=== PATIENT | female | born 1955 | race Caucasian/White ===

== ENCOUNTER 2023-11-13 19:32 | Outpatient (REF) | payer MEDICARE, MEDICAID, SELFPAY ==
[2023-11-13 18:45] LABS: Hemoglobin A1C 6.5 % (<5.7)
[2023-11-13 19:19] LABS: ALT 33 U/L (14-59); AST 22 U/L (15-37); Alkaline Phosphatase 89 U/L (46-116); Anion Gap 10.5 mmol/L (3-11); BUN 31 mg/dL (7-18); Bilirubin, Total 0.7 mg/dL (0.2-1.0); CO2 26.5 mmol/L (21.0-32.0); CREATININE 2.6 mg/dL (0.55-1.02); Calcium 9.7 mg/dL (8.5-10.1); Chloride 102 mmol/L (98-107); Estimated GFR 19.38 (mL/min/1.73m2); Glucose 200 mg/dL (74-106); Potassium 4.5 mmol/L (3.5-5.1); Sodium 139 mmol/L (136-145); TSH (W/Ref FT4) 2.69 uIU/mL (0.36-3.74); Total Protein 7.6 g/dL (6.4-8.2)
[2023-11-13 19:20] LABS: Iron 128 ug/dL (50-170); Total Iron Binding Capacity 343 ug/dL (250-450); Transferrin Sat 37 % (15-50)
[2023-11-13 19:39] LABS: Vitamin D 25 Total 145.7 ng/mL (30-100)
[2023-11-14 00:19] LABS: Magnesium 1.9 mg/dL (1.8-2.4); Vitamin B12 771 pg/mL (193-986)
[2023-11-14 00:23] LABS: Abs Immature Grans 0.02 10^3/uL (0.0-0.06); Absolute Basophil Count 0.05 10^3/uL (0.0-0.2); Absolute Eosinophil Count 0.17 10^3/uL (0.0-0.7); Absolute Lymphocyte Count 1.24 10^3/uL (1.2-3.4); Absolute Monocyte Count 0.61 10^3/uL (0.1-0.8); Absolute Neutrophil Count 4.77 10^3/uL (1.2-6.7); Basophils % 0.7; Eosinophils % 2.5; HCT 37.9 % (36.0-46.0); Immature Grans % 0.3; Lymphocytes % 18.1; MCH 31.9 pg (27.0-33.0); MCHC 34.3 % (32.0-36.0); MCV 93 fL (80-95); MPV 10.7 fL (8.0-11.0); Monocytes % 8.9; Neutrophils % 69.5; Platelet Count 158 10^3/uL (130-400); RBC 4.07 10^6/uL (3.93-5.22); RDW-SD 41.3 fL; WBC 6.86 10^3/uL (4.4-10.8)
== END 2023-11-13 19:33 | disposition home or self-care (01) ==
LOC: LBN 19:32
PROVIDERS: Visit Provider Nurse Practitioner Gerontology
DX: N18.32 Chronic kidney disease, stage 3b (principal); R53.82 Chronic fatigue, unspecified; E83.42 Hypomagnesemia; R73.09 Other abnormal glucose; I11.9 Hypertensive heart disease without heart failure; D52.9 Folate deficiency anemia, unspecified; D51.9 Vitamin B12 deficiency anemia, unspecified; I63.9 Cerebral infarction, unspecified
CPT/HCPCS: 80053; 82306; 82607; 83036; 83540; 83550; 83735; 84443; 85025

== ENCOUNTER 2023-11-14 19:11 | Outpatient (REF) | payer MEDICARE, MEDICAID, SELFPAY ==
[2023-11-15 18:14] LABS: Parathyroid Hormone,Intact 72 pg/mL (19-88)
== END 2023-11-14 19:12 | disposition home or self-care (01) ==
LOC: LBN 19:11
PROVIDERS: Visit Provider Nurse Practitioner Gerontology
DX: N18.32 Chronic kidney disease, stage 3b (principal); I11.9 Hypertensive heart disease without heart failure
CPT/HCPCS: 84156; 84166; 86335; 83970

== ENCOUNTER 2023-11-15 16:59 | Outpatient (REF) | payer MEDICARE, MEDICAID, SELFPAY ==
[2023-11-17 15:38] LABS: Albumin, Urine % 40.9 %; Albumin, Urine mg/dL 11 mg/dL; Globulins, Urine % 59.1 %; Globulins, Urine mg/dL 16 mg/dL; Immunotyping, Urine (See Note); Total Protein Urine 27 mg/dL (See Note)
== END 2023-11-15 17:00 | disposition home or self-care (01) ==
LOC: LBN 16:59
PROVIDERS: Visit Provider Nurse Practitioner Gerontology
DX: N18.32 Chronic kidney disease, stage 3b (principal); R33.9 Retention of urine, unspecified; I11.9 Hypertensive heart disease without heart failure
CPT/HCPCS: 84156; 84166; 86335

== ENCOUNTER 2023-11-20 20:32 | Outpatient (REF) | payer MEDICARE, MEDICAID, SELFPAY ==
[2023-11-20 20:49] LABS: Vitamin D 25 Total 135.2 ng/mL (30-100)
== END 2023-11-20 20:33 | disposition home or self-care (01) ==
LOC: LBN 20:32
PROVIDERS: Visit Provider Nurse Practitioner Gerontology
DX: E55.9 Vitamin D deficiency, unspecified (principal); N18.32 Chronic kidney disease, stage 3b
CPT/HCPCS: 82306

== ENCOUNTER 2023-12-04 10:04 | Emergency (ER) | payer MEDICARE, MEDICAID, SELFPAY ==
[2023-12-04 10:05] VITALS: BP 135/84; PULSE 67; RESP 18; TEMP 37; O2SAT 99
--- NOTE | 2023-12-04 10:08 | ED.GENADUL_ITS ---
Discharge Plan Disposition Patient Disposition: Home Condition: Stable Discharge Details Clinical Impression: Dislodged gastrostomy tube, Complaint associated with gastric tube Primary Care Provider: Unknown,Unknown ED Provider: Roman Epstein Home Meds and New Rx's Prescriptions: No Action acetaminophen [Acetaminophen Extra Strength] 500 mg tablet 500 mg PO Q6H PRN furosemide 20 mg tablet 20 mg PO DAILY amantadine HCl 100 mg capsule 100 mg PO BID insulin glargine [Lantus Solostar U-100 Insulin] 100 unit/mL (3 mL) insulin pen 10 unit subcut BID aspirin 81 mg tablet,chewable 81 mg PO DAILY sennosides-docusate sodium [Lax Stool Softener With Senna] 8.6-50 mg tablet 1 tab-cap PO BID amantadine HCl 100 mg capsule 100 mg PO Q OTHER DAY Tab-A-Tyrone Multivitamin w-iron 15 mg iron- 400 mcg tablet PO insulin aspart U-100 100 unit/mL cartridge 1 sliding scale dose subcut USEASDIRECTD candesartan 16 mg tablet 16 mg PO DAILY atorvastatin 20 mg tablet 20 mg PO DAILY spironolactone 25 mg tablet 25 mg PO DAILY terazosin 1 mg capsule 1 mg PO DAILY amlodipine 10 mg tablet 10 mg PO DAILY famotidine 20 mg tablet 20 mg PO DAILY fluoxetine 20 mg capsule 20 mg PO DAILY Discharge Instructions Additional Instructions: Gastric tube was not replaced today. Please perform basic wound care to protect G-tube wound. Please follow-up with your specialist and primary care physician. Please note that medication reconciliation could be performed today. Please be sure to discuss your medications with your prescribing physician and take as prescribed. Return to the ER immediately for any worsening or new concerning symptoms. HPI General Mode of arrival: ambulatory . Date/Time Provider Initiated Documentation: 12/04/23 10:08 . Limitations to Documentation: no limitations . Information obtained by: patient . HPI Narrative: 68yo female with multiple medical problems including CVA, G-tube placement, here with accidental removal of G-tube that occurred around 9 AM this morning. G- tube was scheduled to be removed on 12/12 per EMS. History limited secondary to altered mental status. Related Data Home Medications Medication Instructions Recorded Confirmed acetaminophen 500 mg tablet 500 mg PO Q6H PRN 12/01/23 (Acetaminophen Extra Strength) amantadine HCl 100 mg capsule 100 mg PO BID 12/01/23 amantadine HCl 100 mg capsule 100 mg PO Q OTHER DAY 12/01/23 amlodipine 10 mg tablet 10 mg PO DAILY 12/01/23 aspirin 81 mg chewable tablet 81 mg PO DAILY 12/01/23 atorvastatin 20 mg tablet 20 mg PO DAILY 12/01/23 candesartan 16 mg tablet 16 mg PO DAILY 12/01/23 famotidine 20 mg tablet 20 mg PO DAILY 12/01/23 fluoxetine 20 mg capsule 20 mg PO DAILY 12/01/23 furosemide 20 mg tablet 20 mg PO DAILY 12/01/23 insulin aspart U-100 100 unit/mL 1 sliding scale dose subcut 12/01/23 subcutaneous cartridge USEASDIRECTD insulin glargine 100 unit/mL (3 10 unit subcut BID 12/01/23 mL) subcutaneous pen (Lantus Solostar U-100 Insulin) multivitamin-iron sulfate 15 tab PO 12/01/23 mg-folic acid 400 mcg tablet (Tab-A-Tyrone Multivitamin w-iron) sennosides 8.6 mg-docusate sodium 1 tab-cap PO BID 12/01/23 50 mg tablet (Laxative Stool Softener With Senna) spironolactone 25 mg tablet 25 mg PO DAILY 12/01/23 terazosin 1 mg capsule 1 mg PO DAILY 12/01/23 Allergies Allergy/AdvReac Type Severity Reaction Status Date / Time Antihistamines - Alkylamine Allergy unknown Unverified 12/01/23 12:06 baclofen Allergy unknown Unverified 12/01/23 12:06 diphenhydramine Allergy unknown Unverified 12/01/23 12:06 hydrocodone Allergy unknown Unverified 12/01/23 12:06 iodine Allergy unknown Unverified 12/01/23 12:06 ketorolac Allergy unknown Unverified 12/01/23 12:06 meperidine Allergy unknown Unverified 12/01/23 12:06 morphine Allergy unknown Unverified 12/01/23 12:06 NSAIDS (Non-Steroidal Allergy unknown Unverified 12/01/23 12:06 Anti-Inflamma prednisone Allergy unknown Unverified 12/01/23 12:06 shellfish Allergy unknown Uncoded 12/01/23 12:06 General Stated Complaint: GenMedical TEX: 4 Review of Systems Gastrointestinal Gastrointestinal: Denies abdominal pain Exam Const General: cooperative and no acute distress Resp Auscultation: clear to auscultation bilaterally, no rales, no rhonchi and no wheezes Cardio Rate: regular rate and not tachycardic Rhythm: regular rhythm GI Palpation: soft, not firm, no guarding, no masses, not rigid and nontender Other: G-tube ostomy intact Course Vital Signs Vital signs: Vital Signs Temperature 37 C 12/04/23 10:05 Pulse 67 12/04/23 10:05 Respiratory Rate 18 12/04/23 10:05 Blood Pressure 135/84 12/04/23 10:05 Pulse Oximetry 99 12/04/23 10:05 Temperature 37 C 12/04/23 10:05 Temperature Source Temporal Artery Scan 12/04/23 10:05 Pulse 67 12/04/23 10:05 Respiratory Rate 18 12/04/23 10:05 Blood Pressure 135/84 12/04/23 10:05 Blood Pressure Position Sitting 12/04/23 10:05 Pulse Oximetry 99 12/04/23 10:05 Oxygen Delivery Method Room Air 12/04/23 10:05 Oxygen Flow Rate 0 12/04/23 10:05 Medical Decision Making 1010 --68-year-old female multiple problems including history of CVA, G-tube placement, here after accidental removal of G-tube. -- Replaced gtube with hua 16F. Consulted surgery. 1129 --I spoke with Dr. Monte, on-call general surgeon, he evaluated the patient and spoke to the patient's daughter. Plan will be to remove G-tube at this time given planned removal. He has removed the Hua and perform wound care. He recommends discharge with routine outpatient follow-up. Quality:SDOH Health Related Social Needs: No Data to Display PFSH All Active Problems (Updated 12/04/23 @ 11:31 by Roman Epstein MD) Complaint associated with gastric tube (Acute) Dislodged gastrostomy tube (Acute) Medical History (Updated 12/04/23 @ 11:31 by Roman Epstein MD) Transaminitis DJD (degenerative joint disease) Elevated troponin Hyperkalemia Lactic acidosis Encephalopathy MIR (nonalcoholic steatohepatitis) Urinary retention Dysphagia Back pain GERD (gastroesophageal reflux disease) Depression Hyperlipidemia Hypotension Diabetes Chronic kidney disease CVA (cerebral vascular accident) Surgical History (Updated 12/01/23 @ 15:05 by Faby Worrell RN) History of hysterectomy S/P percutaneous endoscopic gastrostomy (PEG) tube placement Social History Smoking risk assessment performed?: No
--- NOTE | 2023-12-04 12:53 | W.SURGCON ---
Date of service: 12/04/23 Time of Service: 12:53 Assessment and Plan Assessment and plan (1) Dislodged gastrostomy tube: Status: Acute Assessment and plan: 68 YO F presented with dislodged G-tube CVA Aug 2023 gastrosotmy tube removed, and temporarily replaced with 16 Fr hua catheter Discussed with Marry- Daughter and POA who wished to have have the G-tube discontinued permanently as this was planned for removal within 7 days. Plan: Removal of temporary hua catheter from g-tube site Silver nitrate applied to gastrostomy site mucosa Covered with 4x4 gauze sponge, paper tape Wound care instructions: cover with 4x4 gauze daily, change as needed for soiled dressing Follow-up with General Surgery Dr. Mcfarland as previously scheduled on 12/13/2023 Wound check Application of silver nitrate cautery if indicated History of Present Illness History of Present Illness Chief Complaint: dislodged Gastrostomy tube Narrative: 68 yo F who has a history of CVA, s/p gastrostomy tube secondary to dysphagia. Scheduled for removal of G-tube next week. Presents from SNF after discovery of dislodged G-tube. The patient is a poor historian, status post CVA, she does endorse problems with her memory. She asked me to discuss the recommendation and plans with her daughter. She reports awakening this morning, with incidentally dislodged gastrostomy tube, no pain, no bleeding, no nausea, no vomiting, no GI distress, no discomfort. Timing: Acute, no alleviating or aggravating factors. She was evaluated in the emergency department and underwent appropriate evaluation, and temporary insertion of a 16 [place] Hua catheter with balloon insertion to prevent accidental dislodgment. The patient tolerated this maneuver without difficulty, no complaints. At the time of my evaluation she is sitting upright in the bed, no acute distress, and she endorses her desire to have the gastrostomy tube removed. She is a poor historian, with moderately good recall of details. She corroborates the similar details as her daughter Marry, with regard to nonuse of the gastrostomy tube. She is tolerating adequate oral intake, adequate nutrition, adequate fluid. The only current use for the gastrostomy tube is flushing of the gastrostomy tube to maintain its patency. Consults Consult date: 12/04/23 Review of Systems Narrative: Review of systems is negative except for acute dislodgment of the gastrostomy tube. She does endorse memory issues, no dysphagia, no choking, no aspiration, no recent pneumonia, no heartburn, no reflux. No changes in bowel habits. 12 point view of systems otherwise negative. PFSH All Active Problems (Updated 12/04/23 @ 11:31 by Roman Epstein MD) Complaint associated with gastric tube (Acute) Dislodged gastrostomy tube (Acute) Medical History (Updated 12/04/23 @ 11:31 by Roman Epstein MD) Transaminitis DJD (degenerative joint disease) Elevated troponin Hyperkalemia Lactic acidosis Encephalopathy MIR (nonalcoholic steatohepatitis) Urinary retention Dysphagia Back pain GERD (gastroesophageal reflux disease) Depression Hyperlipidemia Hypotension Diabetes Chronic kidney disease CVA (cerebral vascular accident) Surgical History (Updated 12/01/23 @ 15:05 by Faby Worrell RN) History of hysterectomy S/P percutaneous endoscopic gastrostomy (PEG) tube placement Social History Smoking risk assessment performed?: No Exam Narrative Exam Narrative: gen: No acute distress, sitting upright in the bed Neuro: Status post CVA, no gross neurologic deficits, follows commands Psych: She is a poor historian with some good recall of details, corroborated by her daughter HEENT: Atraumatic, normocephalic Neck: Trachea midline Heart: RRR, no m/r/g Lungs: ctab Chest: Bilateral excursion with respiration, does not localize chest pain Abdomen: Obese abdomen, soft, nontender, there is a temporary Hua catheter indwelling within the gastrostomy tube site, the gastrostomy tube site was noted to have ectopic gastric mucosa around the gastrostomy tract. Silver nitrate was applied to the gastric mucosa. MSK: MAEx4, no traumatic injuries Integument: No lacerations, no abrasions, normal appearing skin Results Last Vital Signs Temp 98.6 F 12/04/23 10:05 Pulse 67 12/04/23 10:05 Resp 18 12/04/23 10:05 BP 135/84 12/04/23 10:05 Pulse Ox 99 12/04/23 10:05
== END 2023-12-04 12:14 | disposition home or self-care (01) ==
PROVIDERS: Emergency Provider Student in an Organized Health Care Education/Training Program
DX: K94.23 Gastrostomy malfunction (principal); I12.9 Hypertensive chronic kidney disease with stage 1 through stage 4 chronic kidney disease, or unspecified chronic kidney disease; E11.22 Type 2 diabetes mellitus with diabetic chronic kidney disease; N18.9 Chronic kidney disease, unspecified; E78.5 Hyperlipidemia, unspecified; Z86.73 Personal history of transient ischemic attack (TIA), and cerebral infarction without residual deficits
CPT/HCPCS: 00123; 99283

== ENCOUNTER → 2023-12-13 08:03 | Outpatient (BNVA) | payer MEDICARE, MEDICAID, SELFPAY | PROVIDERS: PCP Legal Medicine; Referring Provider Legal Medicine; Visit Provider Surgery | DX: T85.528D Displacement of other gastrointestinal prosthetic devices, implants and grafts, subsequent encounter (principal) | CPT/HCPCS: 99213 ==

== ENCOUNTER 2023-12-25 17:56 | Outpatient (REF) | payer MEDICARE, MEDICAID, SELFPAY ==
[2023-12-25 20:24] LABS: ALT 35 U/L (14-59); AST 20 U/L (15-37); Alkaline Phosphatase 81 U/L (46-116); Anion Gap 10.6 mmol/L (3-11); BUN 35 mg/dL (7-18); Bilirubin, Total 0.5 mg/dL (0.2-1.0); CO2 25.4 mmol/L (21.0-32.0); CREATININE 2.7 mg/dL (0.55-1.02); Calcium 9.5 mg/dL (8.5-10.1); Chloride 105 mmol/L (98-107); Estimated GFR 18.52 (mL/min/1.73m2); Glucose 246 mg/dL (74-106); Potassium 4.5 mmol/L (3.5-5.1); Sodium 141 mmol/L (136-145); Total Protein 7.3 g/dL (6.4-8.2)
== END 2023-12-25 17:57 | disposition home or self-care (01) ==
LOC: LBN 17:56
PROVIDERS: PCP Legal Medicine; Visit Provider Nurse Practitioner Gerontology
DX: G89.4 Chronic pain syndrome (principal); E78.5 Hyperlipidemia, unspecified; E83.42 Hypomagnesemia; I11.9 Hypertensive heart disease without heart failure
CPT/HCPCS: 80053

== ENCOUNTER 2024-01-04 08:22 | Emergency (ER) | payer MEDICARE, MEDICAID, SELFPAY ==
--- NOTE | 2024-01-04 | DI.RAD_ITS ---
Exam(s) XR SHOULDER RT COMPLETE 2+V EXAM: XR SHOULDER RT COMPLETE 2+V CLINICAL HISTORY: PAIN. TECHNIQUE: 2D digital imaging was performed of the right shoulder. Four images were obtained. AP, Grashey, Y-view and axillary views were obtained. COMPARISON: No exams were available for comparison FINDINGS: BONES: No acute fracture is present. No bony destructive lesion is seen. JOINTS: No dislocation present. There are degenerative changes seen at the acromioclavicular joint. There is a small osteophyte at the inferior aspect of the glenohumeral joint. SOFT TISSUE: Normal. IMPRESSION: Mild degenerative changes of the shoulder particularly at the AC joint. DATA REPOSITORY: RADIATION DOSE DELIVERED:
[2024-01-04] MEDS: diazePAM 5 MG TAB (09:35)
--- NOTE | 2024-01-04 09:56 | ED.GENADUL_ITS ---
Discharge Plan Disposition Patient Disposition: Home Condition: Stable Discharge Details Clinical Impression: Pain in right shoulder Primary Care Provider: Reena Mayberry ED Provider: Rubio Jean Home Meds and New Rx's Prescriptions: New diazepam [Valium] 5 mg tablet 5 mg PO BID PRN (Reason: muscle spasm) Qty: 10 0RF Continued lidocaine [Aspercreme (lidocaine)] 4 % adhesive patch,medicated 1 patch topical DAILY PRN acetaminophen [Acetaminophen Extra Strength] 500 mg tablet 500 mg PO Q6H PRN furosemide 20 mg tablet 20 mg PO DAILY amantadine HCl 100 mg capsule 100 mg PO BID insulin glargine [Lantus Solostar U-100 Insulin] 100 unit/mL (3 mL) insulin pen 10 unit subcut BID aspirin 81 mg tablet,chewable 81 mg PO DAILY sennosides-docusate sodium [Lax Stool Softener With Senna] 8.6-50 mg tablet 1 tab-cap PO BID amantadine HCl 100 mg capsule 100 mg PO Q OTHER DAY Tab-A-Tyrone Multivitamin w-iron 15 mg iron- 400 mcg tablet PO insulin aspart U-100 100 unit/mL cartridge 1 sliding scale dose subcut USEASDIRECTD candesartan 16 mg tablet 16 mg PO DAILY atorvastatin 20 mg tablet 20 mg PO DAILY spironolactone 25 mg tablet 25 mg PO DAILY terazosin 1 mg capsule 1 mg PO DAILY amlodipine 10 mg tablet 10 mg PO DAILY famotidine 20 mg tablet 20 mg PO DAILY fluoxetine 20 mg capsule 20 mg PO DAILY Discharge Instructions Additional Instructions: Your x-ray showed you have some arthritis in your shoulder Follow-up with your primary care provider within 1 to 2 weeks Return to the emergency department if you feel more ill or have new symptoms such as high fevers or difficulty breathing HPI General Mode of arrival: ambulatory . Date/Time Provider Initiated Documentation: 01/04/24 09:56 . Limitations to Documentation: no limitations . Information obtained by: patient . History of Present Illness 68 year old F presents to the emergency department with the chief complaint of Right shoulder pain, described as moderate, Patient reports no radiation. and it has been constant. No relieving factors improve symptom(s), No exacerbating factors reported . Patient notes no other symptoms.; denies fever/chills. Patient did receive the following treatments prior to arrival, none Related Data Home Medications Medication Instructions Recorded Confirmed acetaminophen 500 mg tablet 500 mg PO Q6H PRN 12/01/23 12/13/23 (Acetaminophen Extra Strength) amantadine HCl 100 mg capsule 100 mg PO BID 12/01/23 12/13/23 amantadine HCl 100 mg capsule 100 mg PO Q OTHER DAY 12/01/23 12/13/23 amlodipine 10 mg tablet 10 mg PO DAILY 12/01/23 12/13/23 aspirin 81 mg chewable tablet 81 mg PO DAILY 12/01/23 12/13/23 atorvastatin 20 mg tablet 20 mg PO DAILY 12/01/23 12/13/23 candesartan 16 mg tablet 16 mg PO DAILY 12/01/23 12/13/23 famotidine 20 mg tablet 20 mg PO DAILY 12/01/23 12/13/23 fluoxetine 20 mg capsule 20 mg PO DAILY 12/01/23 12/13/23 furosemide 20 mg tablet 20 mg PO DAILY 12/01/23 12/13/23 insulin aspart U-100 100 unit/mL 1 sliding scale dose subcut 12/01/23 12/13/23 subcutaneous cartridge USEASDIRECTD insulin glargine 100 unit/mL (3 10 unit subcut BID 12/01/23 12/13/23 mL) subcutaneous pen (Lantus Solostar U-100 Insulin) multivitamin-iron sulfate 15 tab PO 12/01/23 12/13/23 mg-folic acid 400 mcg tablet (Tab-A-Tyrone Multivitamin w-iron) sennosides 8.6 mg-docusate sodium 1 tab-cap PO BID 12/01/23 12/13/23 50 mg tablet (Laxative Stool Softener With Senna) spironolactone 25 mg tablet 25 mg PO DAILY 12/01/23 12/13/23 terazosin 1 mg capsule 1 mg PO DAILY 12/01/23 12/13/23 lidocaine 4 % topical patch 1 patch topical DAILY PRN 12/13/23 12/13/23 (Aspercreme (lidocaine)) diazepam 5 mg tablet (Valium) 5 mg PO BID PRN muscle spasm #10 01/04/24 tabs Previous Rx's Medication Instructions Recorded diazepam 5 mg tablet (Valium) 5 mg PO BID PRN muscle spasm #10 01/04/24 tabs Allergies Allergy/AdvReac Type Severity Reaction Status Date / Time Antihistamines - Alkylamine Allergy unknown Verified 12/13/23 08:09 baclofen Allergy unknown Verified 12/13/23 08:09 diphenhydramine Allergy unknown Verified 12/13/23 08:09 hydrocodone Allergy unknown Verified 12/13/23 08:09 iodine Allergy unknown Verified 12/13/23 08:09 ketorolac Allergy unknown Verified 12/13/23 08:09 meperidine Allergy unknown Verified 12/13/23 08:09 morphine Allergy unknown Verified 12/13/23 08:09 NSAIDS (Non-Steroidal Allergy unknown Verified 12/13/23 08:09 Anti-Inflamma prednisone Allergy unknown Verified 12/13/23 08:09 shellfish Allergy unknown Uncoded 12/13/23 08:09 General TEX: 4 Review of Systems All systems reviewed & are unremarkable except as noted in HPI and below Constitutional Constitutional: Denies chills, Denies fever(s) and Denies weakness Cardiovascular Cardiovascular: Denies dyspnea Respiratory Respiratory: Denies cough and Denies dyspnea Gastrointestinal Gastrointestinal: Denies abdominal pain, Denies nausea and Denies vomiting Integumentary/Breasts Skin/Breast: Denies rash Neurologic Neurologic: Denies weakness Psychiatric Psychiatric: Denies depression Exam Const General: no acute distress Orientation: alert HENSC Head: normal to inspection Ears: external ears normal General nose exam: external nose normal Mouth: moist mucous membranes Eyes General: appearance normal, both eyes and all related structures Neck Neck: normal visual inspection Chest Chest: tenderness Resp Effort & Inspection: normal respiratory effort and able to speak in complete sentences Cardio Rate: regular rate GI Palpation: soft and nontender Skin General skin exam: no rashes or lesions noted Neuro General: patient alert Extrem General: normal to inspection and capillary refill normal Psych Mental Status: mental status grossly normal Medical Decision Making 68-year-old female with a history of a CVA who resides at the [facility], comes in with 1 day of right shoulder pain. She denies any falls or trauma, she localizes it to the right anterior shoulder, has no swelling of the arm, intact pulses and sensation, has limited range of motion of the shoulder due to pain. She has no fevers, no erythema or warmth of the joint. There is reproducible tenderness on the right lateral chest in the mid axillary line over the 4 through 6 ribs. Clear lung sounds, soft nontender abdomen. Suspect musculoskeletal shoulder pain, will obtain x-rays of the shoulder and chest, has no findings on exam or history to suggest a septic joint or DVT of the upper extremity. Pulses are intact without arterial occlusion. Patient feels better after Valium, has full range of motion of the shoulder now, no other changes on exam. She is stable for discharge, advised to follow-up with her PCP and return precautions given Differential Diagnosis Differential Diagnosis: Muscle spasm, strain Imaging Data Radiologic Study: Attestation: I personally reviewed and interpreted this imaging study as follows: Imaging: X-Ray Radiologist's impression: No acute findings on chest x-ray Radiologic Study #2: Attestation: I personally reviewed and interpreted this imaging study as follows: Imaging: X-Ray Radiologist's impression: No acute findings on shoulder x-ray, has degenerative changes Quality:SDOH Health Related Social Needs: No Data to Display PFSH All Active Problems (Updated 01/04/24 @ 11:03 by Rubio Jean MD) Pain in right shoulder (Acute) Medical History (Updated 01/04/24 @ 11:03 by Rubio Jean MD) Transaminitis DJD (degenerative joint disease) Elevated troponin Hyperkalemia Lactic acidosis Encephalopathy MIR (nonalcoholic steatohepatitis) Urinary retention Dysphagia Back pain GERD (gastroesophageal reflux disease) Depression Hyperlipidemia Hypotension Diabetes Chronic kidney disease CVA (cerebral vascular accident) Surgical History (Updated 12/01/23 @ 15:05 by Faby Worrell RN) History of hysterectomy S/P percutaneous endoscopic gastrostomy (PEG) tube placement Social History Smoking/Tobacco Use Status: Never Smoking risk assessment performed?: Yes Alcohol Intake: never Drug use: Never Substance use type: does not use Do you feel safe at home: Yes Do you feel safe in your relationship?: Yes
[2024-01-04 10:16] VITALS: BP 115/56; PULSE 52; RESP 18; TEMP 36.6; O2SAT 97
--- NOTE | 2024-01-04 10:18 | DI.RAD_ITS ---
Exam(s) XR CHEST 2V PA LATERAL EXAM: XR CHEST 2V PA LATERAL CLINICAL HISTORY: RT CHEST TENDERNESS TECHNIQUE: 2D digital imaging was performed of the chest. Two images were obtained. PA and lateral views were obtained. COMPARISON: No exams were available for comparison FINDINGS: The patient is rotated. MEDIASTINUM: Normal. HEART: Normal. PULMONARY VASCULATURE: Normal. LUNGS: Clear. PLEURAL SPACE: No pleural effusion or pneumothorax. BONE:Within normal limits for the patient's age. OTHER FINDINGS:Normal. IMPRESSION: No acute pulmonary findings. DATA REPOSITORY: RADIATION DOSE DELIVERED:
[2024-01-04 10:21] VITALS: BP 115/56; PULSE 52; RESP 18; TEMP 36.6; O2SAT 97
[2024-01-04 11:52] VITALS: BP 120/59; PULSE 52; RESP 18; O2SAT 96
[2024-01-04 11:57] VITALS: BP 120/59; PULSE 52; RESP 18; O2SAT 96
== END 2024-01-04 11:55 | disposition home or self-care (01) ==
PROVIDERS: Emergency Provider Emergency Medicine; PCP Legal Medicine
DX: M25.511 Pain in right shoulder (principal)
CPT/HCPCS: 99283; 71046; 73030

== ENCOUNTER 2024-01-08 17:57 | Outpatient (REF) | payer MEDICARE, MEDICAID, SELFPAY ==
[2024-01-08 17:30] LABS: Magnesium 1.9 mg/dL (1.8-2.4)
[2024-01-08 18:30] LABS: Vitamin D 25 Total 143.8 ng/mL (30-100)
== END 2024-01-08 17:58 | disposition home or self-care (01) ==
LOC: LBN 17:57
PROVIDERS: PCP Legal Medicine; Visit Provider Nurse Practitioner Gerontology
DX: N18.4 Chronic kidney disease, stage 4 (severe) (principal); E11.9 Type 2 diabetes mellitus without complications; E55.9 Vitamin D deficiency, unspecified
CPT/HCPCS: 82306; 83735

== ENCOUNTER 2024-04-15 19:56 | Outpatient (REF) | payer MEDICARE, MEDICAID, SELFPAY ==
[2024-04-15 18:25] LABS: Abs Immature Grans 0.01 10^3/uL (0.0-0.06); Absolute Basophil Count 0.05 10^3/uL (0.0-0.2); Absolute Eosinophil Count 0.11 10^3/uL (0.0-0.7); Absolute Monocyte Count 0.58 10^3/uL (0.1-0.8); Absolute Neutrophil Count 4.25 10^3/uL (1.2-6.7); Basophils % 0.8 %; Eosinophils % 1.7 %; HGB 11.7 g/dL (11.2-15.7); Immature Grans % 0.2 %; Lymphocytes % 20.6 %; MCH 33.2 pg (27.0-33.0); MCHC 35.5 % (32.0-36.0); MCV 94 fL (80-95); MPV 10.1 fL (8.0-11.0); Monocytes % 9.2 %; Neutrophils % 67.5 %; Platelet Count 147 10^3/uL (130-400); RBC 3.52 10^6/uL (3.93-5.22); RDW-SD 41.6 fL
[2024-04-15 19:03] LABS: Hemoglobin A1C 6.2 % (<5.7)
[2024-04-15 19:15] LABS: ALT 35 U/L (14-59); AST 14 U/L (15-37); Albumin 3.9 g/dL (3.4-5.0); Alkaline Phosphatase 82 U/L (46-116); Anion Gap 10.9 mmol/L (3-11); BUN 41 mg/dL (7-18); Bilirubin, Total 0.42 mg/dL (0.2-1.0); CO2 24.1 mmol/L (21.0-32.0); CREATININE 3.2 mg/dL (0.55-1.02); Calcium 9.3 mg/dL (8.5-10.1); Chloride 104 mmol/L (98-107); Glucose 192 mg/dL (74-106); Potassium 4.9 mmol/L (3.5-5.1); Sodium 139 mmol/L (136-145); Total Protein 6.8 g/dL (6.4-8.2)
[2024-04-15 19:32] LABS: Vitamin D 25 Total 126.1 ng/mL (30-100)
== END 2024-04-15 19:57 | disposition home or self-care (01) ==
LOC: LBN 19:56
PROVIDERS: PCP Legal Medicine; Referring Provider Nurse Practitioner Gerontology; Visit Provider Nurse Practitioner Gerontology
DX: E87.1 Hypo-osmolality and hyponatremia (principal); E83.42 Hypomagnesemia; E11.00 Type 2 diabetes mellitus with hyperosmolarity without nonketotic hyperglycemic-hyperosmolar coma (NKHHC); N18.4 Chronic kidney disease, stage 4 (severe)
CPT/HCPCS: 80053; 82306; 83036; 85025

== ENCOUNTER 2024-05-13 19:20 | Outpatient (REF) | payer MEDICARE, MEDICAID, SELFPAY ==
[2024-05-13 19:43] LABS: Abs Immature Grans 0.01 10^3/uL (0.0-0.06); Absolute Basophil Count 0.04 10^3/uL (0.0-0.2); Absolute Eosinophil Count 0.09 10^3/uL (0.0-0.7); Absolute Lymphocyte Count 1.23 10^3/uL (1.2-3.4); Absolute Monocyte Count 0.48 10^3/uL (0.1-0.8); Absolute Neutrophil Count 3.44 10^3/uL (1.2-6.7); Basophils % 0.8 %; Eosinophils % 1.7 %; HCT 33.9 % (36.0-46.0); HGB 11.9 g/dL (11.2-15.7); Immature Grans % 0.2 %; Lymphocytes % 23.3 %; MCH 32.9 pg (27.0-33.0); MCHC 35.1 % (32.0-36.0); MCV 94 fL (80-95); MPV 10.5 fL (8.0-11.0); Monocytes % 9.1 %; Neutrophils % 64.9 %; Platelet Count 150 10^3/uL (130-400); RBC 3.62 10^6/uL (3.93-5.22); RDW 11.9 % (11.7-14.6); WBC 5.29 10^3/uL (4.4-10.8)
[2024-05-13 20:15] LABS: ALT 34 U/L (14-59); AST 22 U/L (15-37); Albumin 3.8 g/dL (3.4-5.0); Alkaline Phosphatase 89 U/L (46-116); Anion Gap 8.8 mmol/L (3-11); BUN 51 mg/dL (7-18); Bilirubin, Total 0.52 mg/dL (0.2-1.0); CO2 26.2 mmol/L (21.0-32.0); CREATININE 2.9 mg/dL (0.55-1.02); Calcium 10.1 mg/dL (8.5-10.1); Chloride 101 mmol/L (98-107); Glucose 224 mg/dL (74-106); Potassium 4.3 mmol/L (3.5-5.1); Sodium 136 mmol/L (136-145); Total Protein 6.9 g/dL (6.4-8.2)
== END 2024-05-13 19:21 | disposition home or self-care (01) ==
LOC: LBN 19:20
PROVIDERS: PCP Legal Medicine; Visit Provider Nurse Practitioner Gerontology
DX: N18.4 Chronic kidney disease, stage 4 (severe) (principal)
CPT/HCPCS: 80053; 85025

== ENCOUNTER 2024-08-05 16:12 | Emergency (ER) | payer MEDICARE, MEDICAID, SELFPAY ==
[2024-08-05] VITALS (18 sets, daily range): BP systolic 121–161; BP diastolic 47–65; PULSE 58–72; RESP 12–25; TEMP 36.6–36.8; O2SAT 93–100
--- NOTE | 2024-08-05 16:15 | DI.RAD_ITS ---
Exam(s) XR ELBOW RT COMPLETE EXAM: XR ELBOW RT COMPLETE CLINICAL HISTORY: right elbow pain. TECHNIQUE: 2D digital imaging was performed. Three views. COMPARISON: No exams were available for comparison FINDINGS: Exam is limited by suboptimal positioning on the lateral view. BONES: No acute fracture is visible. No bony destructive lesion is seen. JOINTS: The elbow is normally aligned. Question of elevation of the anterior fat pad. SOFT TISSUE: Normal. IMPRESSION: Suboptimal positioning. No fracture is identified. DATA REPOSITORY: RADIATION DOSE DELIVERED:
--- NOTE | 2024-08-05 16:15 | DI.RAD_ITS ---
Exam(s) XR KNEE RT 3V AP,LAT,KONSTANTIN EXAM: XR KNEE RT 3V AP,LAT,KONSTANTIN CLINICAL HISTORY: pain post fall. TECHNIQUE: 2D digital imaging was performed. Three views. COMPARISON: No exams were available for comparison FINDINGS: BONES: No acute fracture is present. No bony destructive lesion is seen. JOINTS: The knee is normally aligned. No joint effusion is seen. Minimal degenerative changes. SOFT TISSUE: Vascular calcifications. IMPRESSION: No acute abnormality. DATA REPOSITORY: RADIATION DOSE DELIVERED:
--- NOTE | 2024-08-05 16:15 | DI.CT_ITS ---
Exam(s) CT HEAD CERV SPINE FACIAL WO EXAM: CT HEAD CERV SPINE FACIAL WO CLINICAL HISTORY: fall, [place]. TECHNIQUE: Imaging Protocol: Axial computed tomography images with coronal and sagittal reformatted images were created and reviewed COMPARISON: No exams were available for comparison FINDINGS: CT Head: Ventricles and Extra axial spaces: Normal in size and morphology for the patient's age. Hemorrhage: None. Cerebral parenchyma: No evidence of acute hemorrhage or acute infarct. Old bilateral frontal and par ietal lacunar infarcts. Midline shift: None. Brainstem/Cerebellum: Normal. Calvarium: Normal. Visualized Paranasal sinuses/Mastoids: Opacification of the right sphenoid sinus. Soft Tissues: Unremarkable. CT Face: Facial Bones: No fracture is noted in facial bones. Sinuses and Mastoids: Opacification of the right sphenoid sinus. Globes, extraocular muscles, optic nerves and retrobulbar fat: Normal. Upper aerodigestive tract: Normal. Mandible and bilateral temporomandibular joints: Normal. Soft tissues: Normal. CT Cervical Spine: Bones: No acute fracture or subluxation. Degenerative disc changes noted. Soft Tissues: Unremarkable. Lung Apices: Clear. IMPRESSION: 1. No acute intracranial process. 2. No acute fracture or subluxation in the cervical spine. 3. No acute facial fracture. Opacification of the right sphenoid sinus consistent with chronic sinu sitis. RADIATION DOSE DELIVERED: Total DLP DATA REPOSITORY: All CT scans at this facility are submitted to the National Radiology Data Registry (NRDR) Dose Index Registry (DIR) with the [employer] ([employer]). RADIATION OPTIMIZATION: All CT scans at this facility use at least one of these dose optimization te chniques: automated exposure control; mA and/or kV adjustment per patient size (includes targeted exa ms where dose is matched to clinical indication); or iterative reconstruction.
--- NOTE | 2024-08-05 16:15 | DI.RAD_ITS ---
Exam(s) XR CHEST 2V PA LATERAL EXAM: XR CHEST 2V PA LATERAL CLINICAL HISTORY: fall, [place] TECHNIQUE: 2D digital imaging was performed. Two views. COMPARISON: No exams were available for comparison FINDINGS: HEART: Normal size. Aorta: Not dilated. PULMONARY VASCULATURE: Normal. MEDIASTINUM: Unremarkable. LUNGS: Clear. PLEURAL SPACE: No pleural effusion or pneumothorax. BONE:Unremarkable for age. SOFT TISSUES: Unremarkable. IMPRESSION: No acute abnormality. DATA REPOSITORY: RADIATION DOSE DELIVERED:
[2024-08-05] MEDS: Acetaminophen 325 MG TAB 650 MG PO (16:41)
--- NOTE | 2024-08-05 16:47 | W.ED.GENAD ---
Discharge Plan Disposition Patient Disposition: Home Discharge Details Clinical Impression: Facial hematoma, Contusion of elbow, Abrasion of knee, right, Concussion Primary Care Provider: Reena Mayberry ED Provider: Eloina Raines Home Meds and New Rx's Prescriptions: Continued lidocaine [Aspercreme (lidocaine)] 4 % adhesive patch,medicated 1 patch topical DAILY PRN acetaminophen [Acetaminophen Extra Strength] 500 mg tablet 500 mg PO Q6H PRN furosemide 20 mg tablet 20 mg PO DAILY aspirin 81 mg tablet,chewable 81 mg PO DAILY sennosides-docusate sodium [Lax Stool Softener With Senna] 8.6-50 mg tablet 1 tab-cap PO BID amantadine HCl 100 mg capsule 100 mg PO Q OTHER DAY candesartan 16 mg tablet 16 mg PO DAILY atorvastatin 20 mg tablet 20 mg PO DAILY spironolactone 25 mg tablet 25 mg PO DAILY terazosin 1 mg capsule 1 mg PO BID fluoxetine 20 mg capsule 20 mg PO DAILY melatonin 3 mg capsule 3 mg PO QHS insulin glargine [Basaglar KwikPen U-100 Insulin] 100 unit/mL (3 mL) insulin pen 8 unit subcut BID Discharge Instructions Instructions: Taking care of bruises Additional Instructions: Take Tylenol as needed for discomfort, may apply ice to the area of injury Use caution with ambulating if you have any lightheadedness, you may have a concussion with a headache and lightheadedness after head injury This can be treated with rest, decrease use of electronic devices, and regular fluid consumption Referrals: Reena Mayberry [Primary Care Provider] - HPI General Date/Time Provider Initiated Documentation: 08/05/24 16:13. HPI Narrative: This 69-year-old female with history of right CVA, CKD, diabetes, hyperlipidemia brought in by ambulance from the [facility] for fall onto right side. She states she was coming out of the bathroom when she tripped. She fell forward hitting her head. She denies loss of consciousness. She takes an 81 mg aspirin daily. She has headache, she denies any nausea or vomiting. She denies any chest pain or shortness of breath. She does report some elbow and knee pain. She has been ambulatory since event occurred. Related Data Home Medications ?Medication ?Instructions ?Recorded ?Confirmed acetaminophen 500 mg tablet 500 mg PO Q6H PRN 12/01/23 08/05/24 (Acetaminophen Extra Strength) amantadine HCl 100 mg capsule 100 mg PO Q OTHER DAY 12/01/23 08/05/24 aspirin 81 mg chewable tablet 81 mg PO DAILY 12/01/23 08/05/24 atorvastatin 20 mg tablet 20 mg PO DAILY 12/01/23 08/05/24 candesartan 16 mg tablet 16 mg PO DAILY 12/01/23 08/05/24 fluoxetine 20 mg capsule 20 mg PO DAILY 12/01/23 08/05/24 furosemide 20 mg tablet 20 mg PO DAILY 12/01/23 08/05/24 sennosides 8.6 mg-docusate sodium 1 tab-cap PO BID 12/01/23 08/05/24 50 mg tablet (Laxative Stool Softener With Senna) spironolactone 25 mg tablet 25 mg PO DAILY 12/01/23 08/05/24 terazosin 1 mg capsule 1 mg PO BID 12/01/23 08/05/24 lidocaine 4 % topical patch 1 patch topical DAILY PRN 12/13/23 08/05/24 (Aspercreme (lidocaine)) insulin glargine 100 unit/mL (3 8 unit subcut BID 08/05/24 08/05/24 mL) subcutaneous pen (Basaglar KwikPen U-100 Insulin) melatonin 3 mg capsule 3 mg PO QHS 08/05/24 08/05/24 Allergies Allergy/AdvReac Type Severity Reaction Status Date / Time Antihistamines - Alkylamine Allergy unknown Verified 08/05/24 16:24 baclofen Allergy unknown Verified 08/05/24 16:24 diphenhydramine Allergy unknown Verified 08/05/24 16:24 hydrocodone Allergy unknown Verified 08/05/24 16:24 iodine Allergy unknown Verified 08/05/24 16:24 ketorolac Allergy unknown Verified 08/05/24 16:24 meperidine Allergy unknown Verified 08/05/24 16:24 morphine Allergy unknown Verified 08/05/24 16:24 NSAIDS (Non-Steroidal Allergy unknown Verified 08/05/24 16:24 Anti-Inflamma prednisone Allergy unknown Verified 08/05/24 16:24 shellfish Allergy unknown Uncoded 08/05/24 16:24 General Stated Complaint: Fall/Non TraumaCriteria TEX: 3 Exam Narrative Exam Narrative: 69-year-old female presenting with fall, right forehead ecchymosis right maxillary ecchymosis, pupil equal round reactive to light and accommodation, extraocular muscles intact, no cervical spine tenderness, lungs clear to auscultation, cardiac rate rhythm regular, no chest wall tenderness, no tenderness right shoulder, right elbow tenderness without visible evidence of trauma, no tenderness to forearm or wrist, neurovascularly intact, alert and oriented x 4, GCS 15, tenderness to right knee with abrasion noted able to follow basic commands, residual deficit on the right side from remote CVA Course Vital Signs Vital signs: Vital Signs Temperature 36.6 C 08/05/24 16:18 Pulse 64 08/05/24 16:18 Respiratory Rate 16 08/05/24 16:18 Blood Pressure 121/47 L 08/05/24 16:18 Pulse Oximetry 100 08/05/24 16:18 Temperature 36.6 C 08/05/24 16:18 Temperature Source Temporal Artery Scan 08/05/24 16:18 Pulse 64 08/05/24 16:18 Respiratory Rate 16 08/05/24 16:18 Respiratory Effort Normal, Non-Labored 08/05/24 16:23 Blood Pressure 121/47 L 08/05/24 16:18 Blood Pressure Position Supine 08/05/24 16:18 Pulse Oximetry 100 08/05/24 16:18 Oxygen Delivery Method Room Air 08/05/24 16:18 Oxygen Flow Rate 0 08/05/24 16:18 Pain Level 10 08/05/24 16:41 Medical Decision Making 69-year-old female presenting with mechanical fall just prior to arrival. Ecchymosis on forehead. Alert and oriented, GCS 15. CT head and cervical spine with facial bones does not show evidence of acute abnormality per radiology interpretation and my review. I also ordered right elbow and right knee x-ray per radiology within normal limits, although on elbow there is question of an abnormal anterior fat pad. CT was ordered for further evaluation, CT elbow negative. Patient declined sling. Patient is alert and oriented, she is in no acute distress, her wound on her knee will be cleaned and bacitracin will be applied. Patient currently resides at the [facility] she would like to be discharged back to her home. She denies any additional needs at this time. I spoke with her daughter Marry who is her legal guardian and after consent obtained from patient she was made aware regarding the plan. Patient may have a concussion with a headache past head injury. She is encouraged to use supportive care, Tylenol and regular fluids. Reevaluation in 1 week recommended. Return precautions reviewed and patient expressed understanding Quality:SDOH Health Related Social Needs: No Data to Display PFSH All Active Problems (Updated 08/05/24 @ 19:26 by PJ Chavis) Concussion (Acute) Abrasion of knee, right (Acute) Contusion of elbow (Acute) Facial hematoma (Acute) Medical History (Updated 08/05/24 @ 19:26 by PJ Chavis) Transaminitis DJD (degenerative joint disease) Elevated troponin Hyperkalemia Lactic acidosis Encephalopathy MIR (nonalcoholic steatohepatitis) Urinary retention Dysphagia Back pain GERD (gastroesophageal reflux disease) Depression Hyperlipidemia Hypotension Diabetes Chronic kidney disease CVA (cerebral vascular accident) Surgical History (Updated 12/01/23 @ 15:05 by Faby Worrell RN) History of hysterectomy S/P percutaneous endoscopic gastrostomy (PEG) tube placement Social History Smoking/Tobacco Use Status: Never Smoking risk assessment performed?: Yes Alcohol Intake: never Drug use: Never Substance use type: does not use Housing: fdc Do you feel safe at home: Yes Do you feel safe in your relationship?: Yes
--- NOTE | 2024-08-05 17:30 | DI.CT_ITS ---
Exam(s) CT UPPER EXTREMITY RT WO EXAM: CT UPPER EXTREMITY RT WO CLINICAL HISTORY: right elbow pain post fall with abnl fat pad TECHNIQUE: Imaging Protocol: Axial computed tomography images with coronal and sagittal reformatted images were created and reviewed. CONTRAST MATERIAL: Noncontrast COMPARISON: CR XR SHOULDER RT COMPLETE 2+V from 01/04/2024 CR XR CHEST 2V PA LATERAL from 08/05/2024 CR XR ELBOW RT COMPLETE from 08/05/2024 FINDINGS: The exam is limited by a large amount of image noise secondary to patient arm position at her side. Bones: There is no visible fracture. Bony alignment is satisfactory. There is no evidence of joint space narrowing or cystic degeneration seen. No suspicious lesions are identified. Soft Tissues: Normal. No visible joint effusion. IMPRESSION: Limited exam due to large amount of image noise. No fracture is visible. RADIATION DOSE DELIVERED: Total DLP DATA REPOSITORY: All CT scans at this facility are submitted to the National Radiology Data Registry (NRDR) Dose Index Registry (DIR) with the [employer] (A[employer]). RADIATION OPTIMIZATION: All CT scans at this facility use at least one of these dose optimization te chniques: automated exposure control; mA and/or kV adjustment per patient size (includes targeted exa ms where dose is matched to clinical indication); or iterative reconstruction.
== END 2024-08-05 19:54 | disposition home or self-care (01) ==
PROVIDERS: Emergency Provider Physician Assistant; PCP Legal Medicine
DX: S00.83XA Contusion of other part of head, initial encounter (principal); S50.01XA Contusion of right elbow, initial encounter; S80.01XA Contusion of right knee, initial encounter; S06.0X0A Concussion without loss of consciousness, initial encounter; E11.22 Type 2 diabetes mellitus with diabetic chronic kidney disease; I12.9 Hypertensive chronic kidney disease with stage 1 through stage 4 chronic kidney disease, or unspecified chronic kidney disease; N18.9 Chronic kidney disease, unspecified; Z79.4 Long term (current) use of insulin; Z79.82 Long term (current) use of aspirin; W01.0XXA Fall on same level from slipping, tripping and stumbling without subsequent striking against object, initial encounter; Y93.89 Activity, other specified; Y92.091 Bathroom in other non-institutional residence as the place of occurrence of the external cause
CPT/HCPCS: 73562; 99284; 70450; 70486; 71046; 72125; 73080; 73200

== ENCOUNTER 2024-08-13 11:36 | Emergency (ER) | payer MEDICARE, MEDICAID, SELFPAY ==
[2024-08-13] VITALS (20 sets, daily range): BP systolic 90–128; BP diastolic 27–48; PULSE 60–77; RESP 12–18; TEMP 36.6; O2SAT 93–100
--- NOTE | 2024-08-13 11:15 | RT.EKG_ITS ---
APPROVED REPORT Exam: Resting ECG Reason for Exam: chest pain Patient Location: E HR:74 bpm ECG Measurements Heart Rate 74 AXIS IL [id number] P [id number] QRSd 95 QRS -12 QT 431 T 37 QTc 478 Conclusion Atrial fibrillation...V-rate 61- 93, irreg A-activity Inferior infarct, old...Q >35mS, II III aVF
[2024-08-13 12:06] LABS: BE (Venous) -1 mmol/L (-2-3); HCO3 (Venous) 24 mmol/L (23-28); O2 Sat (Venous) 68 %; TCO2 (Venous) 22 mmol/L (24-29); pCO2 (Venous) 38 mmHg (41-51); pO2 (Venous) 33 mmHg
--- NOTE | 2024-08-13 12:13 | ED.GENADUL_ITS ---
Discharge Plan Disposition Patient Disposition: Home Condition: Stable Discharge Details Clinical Impression: COVID, Chest tightness Primary Care Provider: Reena Mayberry ED Provider: Rubio Jean Home Meds and New Rx's Prescriptions: Continued lidocaine [Aspercreme (lidocaine)] 4 % adhesive patch,medicated 1 patch topical DAILY PRN acetaminophen [Acetaminophen Extra Strength] 500 mg tablet 500 mg PO Q6H PRN furosemide 20 mg tablet 20 mg PO DAILY aspirin 81 mg tablet,chewable 81 mg PO DAILY sennosides-docusate sodium [Lax Stool Softener With Senna] 8.6-50 mg tablet 1 tab-cap PO BID amantadine HCl 100 mg capsule 100 mg PO Q OTHER DAY candesartan 16 mg tablet 16 mg PO DAILY atorvastatin 20 mg tablet 20 mg PO DAILY spironolactone 25 mg tablet 25 mg PO DAILY terazosin 1 mg capsule 1 mg PO BID fluoxetine 20 mg capsule 20 mg PO DAILY melatonin 3 mg capsule 3 mg PO QHS insulin glargine [Basaglar KwikPen U-100 Insulin] 100 unit/mL (3 mL) insulin pen 8 unit subcut BID Discharge Instructions Additional Instructions: Your x-ray and blood work did not show any concerning findings at this time. You are still positive for COVID Follow-up with your primary care provider if you continue to have symptoms within a week You were given a one-time dose of an antibiotic for possible urinary tract infection. If you feel more ill, have new symptoms such as persistent vomiting or severe shortness of breath return to the emergency department for reevaluation. HPI General Mode of arrival: EMS . Date/Time Provider Initiated Documentation: 08/13/24 11:54 . Limitations to Documentation: no limitations . Information obtained by: patient . History of Present Illness 69 year old F presents to the emergency department with the chief complaint of cough, described as moderate, Patient started experiencing this day(s) (7) and it has been constant. No relieving factors improve symptom(s), No exacerbating factors reported . Patient notes chest pain; denies fever/chills. Patient did receive the following treatments prior to arrival, none Related Data Home Medications ?Medication ?Instructions ?Recorded ?Confirmed acetaminophen 500 mg tablet 500 mg PO Q6H PRN 12/01/23 08/13/24 (Acetaminophen Extra Strength) amantadine HCl 100 mg capsule 100 mg PO Q OTHER DAY 12/01/23 08/13/24 aspirin 81 mg chewable tablet 81 mg PO DAILY 12/01/23 08/13/24 atorvastatin 20 mg tablet 20 mg PO DAILY 12/01/23 08/13/24 candesartan 16 mg tablet 16 mg PO DAILY 12/01/23 08/13/24 fluoxetine 20 mg capsule 20 mg PO DAILY 12/01/23 08/13/24 furosemide 20 mg tablet 20 mg PO DAILY 12/01/23 08/13/24 sennosides 8.6 mg-docusate sodium 1 tab-cap PO BID 12/01/23 08/13/24 50 mg tablet (Laxative Stool Softener With Senna) spironolactone 25 mg tablet 25 mg PO DAILY 12/01/23 08/13/24 terazosin 1 mg capsule 1 mg PO BID 12/01/23 08/13/24 lidocaine 4 % topical patch 1 patch topical DAILY PRN 12/13/23 08/13/24 (Aspercreme (lidocaine)) insulin glargine 100 unit/mL (3 8 unit subcut BID 08/05/24 08/13/24 mL) subcutaneous pen (Basaglar KwikPen U-100 Insulin) melatonin 3 mg capsule 3 mg PO QHS 08/05/24 08/13/24 Allergies Allergy/AdvReac Type Severity Reaction Status Date / Time Antihistamines - Alkylamine Allergy unknown Verified 08/05/24 16:24 baclofen Allergy unknown Verified 08/05/24 16:24 diphenhydramine Allergy unknown Verified 08/05/24 16:24 hydrocodone Allergy unknown Verified 08/05/24 16:24 iodine Allergy unknown Verified 08/05/24 16:24 ketorolac Allergy unknown Verified 08/05/24 16:24 meperidine Allergy unknown Verified 08/05/24 16:24 morphine Allergy unknown Verified 08/05/24 16:24 NSAIDS (Non-Steroidal Allergy unknown Verified 08/05/24 16:24 Anti-Inflamma prednisone Allergy unknown Verified 08/05/24 16:24 shellfish Allergy unknown Uncoded 08/05/24 16:24 General Stated Complaint: RespSymp TEX: 3 Review of Systems All systems reviewed & are unremarkable except as noted in HPI and below Constitutional Constitutional: Denies chills, Denies fever(s) and Denies weakness Cardiovascular Cardiovascular: Reports chest pain and Denies dyspnea Respiratory Respiratory: Reports cough and Denies dyspnea Gastrointestinal Gastrointestinal: Denies abdominal pain, Denies nausea and Denies vomiting Neurologic Neurologic: Denies weakness Exam Const General: no acute distress Orientation: alert [facility] Head: normal to inspection Ears: external ears normal General nose exam: external nose normal Mouth: moist mucous membranes Eyes General: appearance normal, both eyes and all related structures Neck Neck: normal visual inspection Resp Effort & Inspection: normal respiratory effort and able to speak in complete sentences Auscultation: clear to auscultation bilaterally Cardio Jugular venous pressure: no JVD Rate: regular rate GI Palpation: soft and nontender Skin General skin exam: no rashes or lesions noted Neuro General: patient alert and patient oriented x3 Extrem General: normal to inspection Psych Mental Status: mental status grossly normal Course Vital Signs Vital signs: Vital Signs Respiratory Rate 18 08/13/24 11:41 Temperature 36.6 C 08/13/24 11:50 Pulse 75 08/13/24 11:50 Respiratory Rate 17 08/13/24 11:50 Blood Pressure 128/48 L 08/13/24 11:50 Blood Pressure Mean 77 08/13/24 11:48 Blood Pressure Position Sitting 08/13/24 11:50 Pulse Oximetry 100 08/13/24 11:50 Oxygen Delivery Method Room Air 08/13/24 11:50 Oxygen Flow Rate 0 08/13/24 11:50 Medical Decision Making 69-year-old female with a history of diabetes, hyperlipidemia, who [facility] with 7 days of cough and intermittent chest tightness. Denies any vomiting, fevers, diaphoresis. She apparently tested positive for COVID on the . She is well-appearing on exam speaking full sentences. She has clear lung sounds, no JVD, no leg swelling or calf tenderness. Given her complaints of chest tightness we will check troponins and a CBC and CMP, will also obtain a chest x-ray given her cough to evaluate for pneumonia. She has no significant tachycardia or signs of DVT so doubt PE. She has no tearing back pain and equal peripheral pulses so doubt dissection. Patient's labs show no emergent findings. Her BNP is elevated but has never had this checked before and her x-ray is unremarkable and clinically not in CHF. Delta troponins negative. She is positive for COVID, she apparently started having symptoms of her 5 days ago including runny nose and cough. Do not feel oral medication for this indicated at this point. She is stable for discharge, advised to follow-up with her PCP and return precautions given patient's urine came back positive with nitrites so was given a dose of fosfomycin x1. She has no flank pain or abdominal pain so doubt infected kidney stone I do not feel any acute imaging of her abdomen and pelvis indicated. She has no CVA tenderness and no fevers to suggest sepsis or Pyelo Differential Diagnosis Differential Diagnosis: COVID, pneumonia, anemia Lab Data Lab results reviewed: Yes I reviewed the patient's lab results. ECG Data Attestation: I personally reviewed and interpreted this ECG (s) as follows: Prior ECG tracings: not available for review Interpretation: A-fib, rate of 74, QTc 478, no STEMI Quality:SDOH Health Related Social Needs: No Data to Display PFSH All Active Problems (Updated 08/13/24 @ 13:46 by Rubio Jean MD) Chest tightness (Acute) COVID (Acute) Concussion (Acute) Abrasion of knee, right (Acute) Contusion of elbow (Acute) Facial hematoma (Acute) Medical History (Updated 08/13/24 @ 13:46 by Rubio Jean MD) Transaminitis DJD (degenerative joint disease) Elevated troponin Hyperkalemia Lactic acidosis Encephalopathy MIR (nonalcoholic steatohepatitis) Urinary retention Dysphagia Back pain GERD (gastroesophageal reflux disease) Depression Hyperlipidemia Hypotension Diabetes Chronic kidney disease CVA (cerebral vascular accident) Surgical History (Updated 12/01/23 @ 15:05 by Faby Worrell RN) History of hysterectomy S/P percutaneous endoscopic gastrostomy (PEG) tube placement Social History Smoking/Tobacco Use Status: Never Smoking risk assessment performed?: Yes Alcohol Intake: never Drug use: Never Substance use type: does not use Housing: fpc Do you feel safe at home: Yes Do you feel safe in your relationship?: Yes
--- NOTE | 2024-08-13 12:30 | DI.RAD_ITS ---
Exam(s) XR CHEST 2V PA LATERAL EXAM: XR CHEST 2V PA LATERAL CLINICAL HISTORY: cough, chest pain TECHNIQUE: 2D digital imaging was performed of the chest. Two images were obtained. PA and lateral views were obtained. COMPARISON: CR XR CHEST 2V PA LATERAL from 08/05/2024 FINDINGS: MEDIASTINUM: Normal. HEART: Normal. PULMONARY VASCULATURE: Normal. LUNGS: Clear. PLEURAL SPACE: No pleural effusion or pneumothorax. BONE:Within normal limits for the patient's age. OTHER FINDINGS:Normal. IMPRESSION: No acute pulmonary findings. DATA REPOSITORY: RADIATION DOSE DELIVERED:
[2024-08-13 12:38] LABS: ALT 24 U/L (14-59); AST 20 U/L (15-37); Albumin 3.3 g/dL (3.4-5.0); Alkaline Phosphatase 98 U/L (46-116); Anion Gap 13.4 mmol/L (3-11); BUN 30 mg/dL (7-18); Bilirubin, Total 0.63 mg/dL (0.2-1.0); CO2 23.6 mmol/L (21.0-32.0); CREATININE 2.2 mg/dL (0.55-1.02); Calcium 9.1 mg/dL (8.5-10.1); Chloride 107 mmol/L (98-107); Estimated GFR 23.53 (mL/min/1.73m2); Glucose 125 mg/dL (74-106); Magnesium 1.5 mg/dL (1.8-2.4); NT-proBNP 1115 pg/mL (<300); Potassium 3.7 mmol/L (3.5-5.1); Sodium 144 mmol/L (136-145); TSH (W/Ref FT4) 1.89 uIU/mL (0.36-3.74); Total Protein 6.7 g/dL (6.4-8.2); Troponin I 11 ng/L (<or=51)
[2024-08-13 12:55] LABS: Influenza A PCR Negative (Negative); Influenza B PCR Negative (Negative); RSV PCR Negative (Negative)
[2024-08-13 12:59] LABS: Source Nasopharynx
[2024-08-13 13:00] LABS: COVID-19 PCR Positive (Negative)
[2024-08-13 13:21] LABS: Procalcitonin < 0.10 ng/mL
[2024-08-13 13:34] LABS: Troponin I 12 ng/L (<or=51)
[2024-08-13 13:45] LABS: Bilirubin Negative (Negative); Blood Negative (Negative); Clarity Clear (Clear); Glucose Negative (Negative); Ketones Negative (Negative); Leukocyte Esterase Moderate (Negative); Nitrite Positive (Negative); Specific Gravity 1.015 (1.005-1.025); Urobilinogen 0.2 mg/dL (Up to 0.2); pH 5.5 (5-8)
[2024-08-13 13:58] LABS: Bacteria Moderate HPF (Negative); C & S Indicated? Yes; Casts Negative LPF (Negative); Crystals Negative HPF (Negative); Epithelial Cells Rare HPF (Negative); Mucus Negative (Negative); Other Cells Rare Renal (Negative); RBC Negative HPF (0-2); WBC 20-50 HPF (0-5)
[2024-08-13] MEDS: Fosfomycin Tromethamine 3 GM PACKET PO (14:23)
--- NOTE | 2024-08-15 08:26 | NUR.NOTE ---
Accessed Pt report to see if an antibiotic was prescribed for the Specimen report. There was not and Specimen report put on the clipboard in the Drs Room.
--- NOTE | 2024-08-15 12:42 | ED.FU.B_ITS ---
Follow Up Plan: pt given fosfomycin fo r+uti, sensitive, pines ON SITE COORDINATOR made aware.
--- NOTE | 2024-08-15 12:42 | W.ED.FU ---
Follow Up Plan: pt given fosfomycin fo r+uti, sensitive, pines RAISE MINER made aware.
== END 2024-08-13 14:41 | disposition home or self-care (01) ==
PROVIDERS: Emergency Provider Emergency Medicine; PCP Legal Medicine
DX: U07.1 COVID-19 (principal); I48.91 Unspecified atrial fibrillation; E78.5 Hyperlipidemia, unspecified; E11.9 Type 2 diabetes mellitus without complications; E11.22 Type 2 diabetes mellitus with diabetic chronic kidney disease; N18.9 Chronic kidney disease, unspecified; Z86.73 Personal history of transient ischemic attack (TIA), and cerebral infarction without residual deficits; Z93.1 Gastrostomy status; Z79.82 Long term (current) use of aspirin; Z79.4 Long term (current) use of insulin
CPT/HCPCS: 36415; 80053; 82805; 84145; 87077; 87637; 93005; 99285; 71046; 81003; 81015; 83735; 83880; 84443; 84484; 87086; 87186; 93010; 99284; J3490

== ENCOUNTER 2024-08-26 20:28 | Outpatient (REF) | payer MEDICARE, MEDICAID, SELFPAY ==
[2024-08-26 22:12] LABS: ALT 27 U/L (14-59); AST 27 U/L (15-37); Albumin 3.3 g/dL (3.4-5.0); Alkaline Phosphatase 127 U/L (46-116); Anion Gap 8.6 mmol/L (3-11); BUN 18 mg/dL (7-18); Bilirubin, Total 0.62 mg/dL (0.2-1.0); CO2 26.4 mmol/L (21.0-32.0); CREATININE 2.1 mg/dL (0.55-1.02); Calcium 9.2 mg/dL (8.5-10.1); Chloride 107 mmol/L (98-107); Estimated GFR 24.88 (mL/min/1.73m2); Glucose 215 mg/dL (74-106); Potassium 4.6 mmol/L (3.5-5.1); Sodium 142 mmol/L (136-145); Total Protein 6.5 g/dL (6.4-8.2)
== END 2024-08-26 20:29 | disposition home or self-care (01) ==
LOC: LBN 20:28
PROVIDERS: PCP Legal Medicine; Visit Provider Nurse Practitioner Gerontology
DX: N18.4 Chronic kidney disease, stage 4 (severe) (principal); E87.1 Hypo-osmolality and hyponatremia
CPT/HCPCS: 80053

== ENCOUNTER 2024-09-23 19:46 | Outpatient (REF) | payer MEDICARE, MEDICAID, SELFPAY ==
[2024-09-23 19:18] LABS: ALT 22 U/L (14-59); AST 21 U/L (15-37); Albumin 3.2 g/dL (3.4-5.0); Alkaline Phosphatase 102 U/L (46-116); Anion Gap 9.1 mmol/L (3-11); BUN 22 mg/dL (7-18); Bilirubin, Total 0.66 mg/dL (0.2-1.0); CO2 25.9 mmol/L (21.0-32.0); CREATININE 1.9 mg/dL (0.55-1.02); Calcium 9.2 mg/dL (8.5-10.1); Chloride 107 mmol/L (98-107); Estimated GFR 28.06 (mL/min/1.73m2); Glucose 276 mg/dL (74-106); Sodium 142 mmol/L (136-145); Total Protein 6.1 g/dL (6.4-8.2)
[2024-09-23 19:40] LABS: Vitamin D 25 Total 111.9 ng/mL (30-100)
== END 2024-09-23 19:47 | disposition home or self-care (01) ==
LOC: LBN 19:46
PROVIDERS: PCP Legal Medicine; Visit Provider Nurse Practitioner Gerontology
DX: E55.9 Vitamin D deficiency, unspecified; E87.6 Hypokalemia; E11.9 Type 2 diabetes mellitus without complications
CPT/HCPCS: 80053; 82306; 83036

== ENCOUNTER 2024-09-26 17:34 | Outpatient (REF) | payer MEDICARE, MEDICAID, SELFPAY ==
[2024-09-26 18:39] LABS: Hemoglobin A1C 6.1 % (<5.7)
== END 2024-09-26 17:35 | disposition home or self-care (01) ==
LOC: LBN 17:34
PROVIDERS: PCP Legal Medicine; Visit Provider Nurse Practitioner Gerontology
DX: E11.9 Type 2 diabetes mellitus without complications (principal)
CPT/HCPCS: 83036

== ENCOUNTER 2025-01-02 17:44 | Outpatient (REF) | payer MEDICARE, MEDICAID, SELFPAY ==
[2025-01-02 17:59] LABS: Abs Immature Grans 0.02 10^3/uL (0.0-0.06); Absolute Basophil Count 0.04 10^3/uL (0.0-0.2); Absolute Eosinophil Count 0.17 10^3/uL (0.0-0.7); Absolute Monocyte Count 0.45 10^3/uL (0.1-0.8); Absolute Neutrophil Count 2.74 10^3/uL (1.2-6.7); Basophils % 0.8 %; Eosinophils % 3.6 %; HCT 39.9 % (36.0-46.0); HGB 13.8 g/dL (11.2-15.7); Immature Grans % 0.4 %; Lymphocytes % 27.5 %; MCH 31.3 pg (27.0-33.0); MCHC 34.6 % (32.0-36.0); MCV 91 fL (80-95); MPV 10.2 fL (8.0-11.0); Monocytes % 9.5 %; Neutrophils % 58.2 %; Platelet Count 147 10^3/uL (130-400); RBC 4.41 10^6/uL (3.93-5.22); RDW 13.1 % (11.7-14.6); RDW-SD 42.9 fL; WBC 4.72 10^3/uL (4.4-10.8)
[2025-01-02 18:09] LABS: ALT 24 U/L (14-59); AST 22 U/L (15-37); Albumin 3.7 g/dL (3.4-5.0); Alkaline Phosphatase 99 U/L (46-116); Anion Gap 6.6 mmol/L (3-11); BUN 22 mg/dL (7-18); Bilirubin, Total 0.8 mg/dL (0.2-1.0); CO2 30.4 mmol/L (21.0-32.0); CREATININE 1.8 mg/dL (0.55-1.02); Calcium 9.7 mg/dL (8.5-10.1); Chloride 106 mmol/L (98-107); Estimated GFR 29.94 (mL/min/1.73m2); Glucose 143 mg/dL (74-106); Potassium 4.4 mmol/L (3.5-5.1); Sodium 143 mmol/L (136-145); Total Protein 6.9 g/dL (6.4-8.2)
== END 2025-01-02 17:45 | disposition home or self-care (01) ==
LOC: LBN 17:44
PROVIDERS: PCP Legal Medicine; Visit Provider Nurse Practitioner Gerontology
DX: N18.4 Chronic kidney disease, stage 4 (severe) (principal); E86.0 Dehydration
CPT/HCPCS: 80053; 85025

== ENCOUNTER 2025-02-17 18:04 | Outpatient (REF) | payer MEDICARE, MEDICAID, SELFPAY ==
[2025-02-17 19:03] LABS: Abs Immature Grans 0.01 10^3/uL (0.0-0.06); Absolute Basophil Count 0.04 10^3/uL (0.0-0.2); Absolute Eosinophil Count 0.16 10^3/uL (0.0-0.7); Absolute Monocyte Count 0.41 10^3/uL (0.1-0.8); Basophils % 0.9 %; Eosinophils % 3.5 %; HCT 38.5 % (36.0-46.0); HGB 13.3 g/dL (11.2-15.7); Immature Grans % 0.2 %; Lymphocytes % 26.5 %; MCH 31.5 pg (27.0-33.0); MCHC 34.5 % (32.0-36.0); MCV 91 fL (80-95); MPV 10.8 fL (8.0-11.0); Monocytes % 9.1 %; Neutrophils % 59.8 %; Platelet Count 128 10^3/uL (130-400); RBC 4.22 10^6/uL (3.93-5.22); RDW 12.5 % (11.7-14.6); RDW-SD 41.2 fL; WBC 4.52 10^3/uL (4.4-10.8)
[2025-02-17 19:23] LABS: ALT 26 U/L (14-59); AST 20 U/L (15-37); Albumin 3.7 g/dL (3.4-5.0); Alkaline Phosphatase 104 U/L (46-116); Anion Gap 9.5 mmol/L (3-11); BUN 23 mg/dL (7-18); Bilirubin, Total 0.8 mg/dL (0.2-1.0); CO2 27.5 mmol/L (21.0-32.0); CREATININE 1.6 mg/dL (0.55-1.02); Calcium 9.3 mg/dL (8.5-10.1); Chloride 107 mmol/L (98-107); Estimated GFR 34.48 (mL/min/1.73m2); Glucose 190 mg/dL (74-106); Magnesium 1.7 mg/dL (1.8-2.4); Sodium 144 mmol/L (136-145); Total Protein 6.7 g/dL (6.4-8.2)
== END 2025-02-17 18:05 | disposition home or self-care (01) ==
LOC: LBN 18:04
PROVIDERS: PCP Legal Medicine; Visit Provider Nurse Practitioner Gerontology
DX: N18.4 Chronic kidney disease, stage 4 (severe) (principal); E83.42 Hypomagnesemia; R19.7 Diarrhea, unspecified
CPT/HCPCS: 80053; 83735; 85025

== ENCOUNTER 2025-03-17 20:03 | Outpatient (REF) | payer MEDICARE, MEDICAID, SELFPAY ==
[2025-03-17 21:00] LABS: Abs Immature Grans 0.01 10^3/uL (0.0-0.06); HCT 38.0 % (36.0-46.0); HGB 13.0 g/dL (11.2-15.7); Immature Grans % 0.2 %; MCH 31.5 pg (27.0-33.0); MCHC 34.2 % (32.0-36.0); MCV 92 fL (80-95); MPV 10.5 fL (8.0-11.0); Platelet Count 128 10^3/uL (130-400); RBC 4.13 10^6/uL (3.93-5.22); RDW 12.2 % (11.7-14.6); RDW-SD 40.8 fL; WBC 4.09 10^3/uL (4.4-10.8)
[2025-03-17 21:18] LABS: COMMENT (LAB VIEW ONLY) 105.71 mg/dL; Microalb ug/mg Crea 14.1 ug/mg Cr
[2025-03-17 21:20] LABS: PROTEIN < 6.0 mg/dL
[2025-03-17 21:42] LABS: Albumin 3.7 g/dL (3.4-5.0); Anion Gap 5.2 mmol/L (3-11); BUN 20 mg/dL (7-18); CO2 28.8 mmol/L (21.0-32.0); Calcium 9.2 mg/dL (8.5-10.1); Chloride 105 mmol/L (98-107); Estimated GFR 32.06 (mL/min/1.73m2); Glucose 239 mg/dL (74-106); Potassium 4.3 mmol/L (3.5-5.1); Sodium 139 mmol/L (136-145)
[2025-03-17 21:53] LABS: Vitamin D 25 Total 110 ng/mL (30-100)
== END 2025-03-17 20:04 | disposition home or self-care (01) ==
LOC: LBN 20:03
PROVIDERS: Internal Medicine Nephrology; PCP Legal Medicine; Visit Provider Legal Medicine
DX: N18.4 Chronic kidney disease, stage 4 (severe) (principal)
CPT/HCPCS: 80048; 82306; 82040; 82043; 82565; 82570; 83970; 84156; 85025

== ENCOUNTER 2025-05-12 19:37 | Outpatient (REF) | payer MEDICARE, MEDICAID, SELFPAY ==
[2025-05-12 20:02] LABS: ALT 24 U/L (14-59); AST 20 U/L (15-37); Albumin 3.3 g/dL (3.4-5.0); Alkaline Phosphatase 90 U/L (46-116); Anion Gap 8.8 mmol/L (3-11); BUN 27 mg/dL (7-18); Bilirubin, Total 0.7 mg/dL (0.2-1.0); CO2 27.2 mmol/L (21.0-32.0); Calcium 9.0 mg/dL (8.5-10.1); Chloride 107 mmol/L (98-107); Estimated GFR 24.88 (mL/min/1.73m2); Glucose 169 mg/dL (74-106); Hemoglobin A1C 6.0 % (<5.7); Magnesium 1.6 mg/dL (1.8-2.4); Potassium 4.5 mmol/L (3.5-5.1); Sodium 143 mmol/L (136-145); TSH (W/Ref FT4) 1.72 uIU/mL (0.36-3.74); Total Protein 6.1 g/dL (6.4-8.2)
[2025-05-12 20:07] LABS: Abs Immature Grans 0.01 10^3/uL (0.0-0.06); HCT 36.5 % (36.0-46.0); HGB 12.4 g/dL (11.2-15.7); Immature Grans % 0.2 %; MCH 31.5 pg (27.0-33.0); MCHC 34.0 % (32.0-36.0); MCV 93 fL (80-95); MPV 10.7 fL (8.0-11.0); Platelet Count 123 10^3/uL (130-400); RBC 3.94 10^6/uL (3.93-5.22); RDW 12.4 % (11.7-14.6); RDW-SD 42.5 fL; WBC 4.67 10^3/uL (4.4-10.8)
== END 2025-05-12 19:38 | disposition home or self-care (01) ==
LOC: LBN 19:37
PROVIDERS: PCP Legal Medicine; Visit Provider Nurse Practitioner Gerontology
DX: R73.09 Other abnormal glucose (principal); E87.8 Other disorders of electrolyte and fluid balance, not elsewhere classified
CPT/HCPCS: 80053; 83036; 83735; 84443; 85025